=== PATIENT | male | born 1935 | race Two or more races ===

== ENCOUNTER 2016-08-18 08:18 | Emergency (ER) | payer MEDICARE, OTHER ==
[~2016-08-18] VITALS: Ht 170.2 cm; Wt 63.5 kg
[2016-08-18] MEDS ORDERED: PROMETHAZINE HCL 25 MG/ML 1ML ONE (13:08)
[2016-08-18] MEDS ORDERED: KETOROLAC TROMETH 60MG/2ML VIAL IM ONE ×2 (13:08→13:15)
[2016-08-18] MEDS ORDERED: PROMETHAZINE HCL 25 MG/ML 1ML IM ONE (13:15)
[2016-08-18 15:02] VITALS: BP 118/80
== END 2016-08-18 15:13 | disposition home or self-care (01) ==
LOC: ER 08:19
DX: M70.41 Prepatellar bursitis, right knee (principal); M66.0 Rupture of popliteal cyst
CPT/HCPCS: 73562; 93971; 96372; 99284; J1885; J2550